=== PATIENT | female | born 1995 | race Caucasian/White ===

== ENCOUNTER 2017-06-14 01:02 | Emergency (ER) | payer BC ==
--- NOTE | 2017-06-14 01:21 | EDPHY ---
H & P Stated Complaint: ETOH, facial abrasions Time Seen by Provider: 06/14/17 01:10 HPI/ROS: Chief Complaint: Alcohol intoxication, vomiting HPI: 21-year-old female who was found on the street intoxicated. Patient noted to have a swollen right upper lip and facial contusions. Patient does not remember how she sustained these. She is unable to ambulate on their own. Patient brought in by EMS for further evaluation. Remainder of history is unobtainable secondary to the patient's intoxication. ROS: Unobtainable secondary to the patient's intoxication PMH: Unknown Medications: Unknown Allergies: Unknown Social History: Positive for alcohol Family History: non-contributory Physical Exam: Gen: Somnolent, responds to painful stimuli, maintaining airway, smells of alcohol and emesis HEENT: Patient has swollen right sided upper lower lips. There is a non through and through inner lower lip laceration. There is a small right upper lip abrasion with ecchymosis. There is right sided facial swelling. No zygoma tenderness. Nose: no epistaxis or deformity Eyes: PERRLA, EOMI Mouth: Moist mucosa no dental trauma, no maxillary or mandibular deformity or tenderness, full movement of her jaw. No temporomandibular joint tenderness Neck: Supple, no step-offs or deformity Chest: Atraumatic, lungs clear to auscultation Heart: S1, S2 normal, no murmur Abd: Soft, non-tender, no guarding Back: Atraumatic Ext: no edema, atraumatic Skin: no rash Neuro: Sensation grossly intact, Strength 5/5 in bilateral upper and lower extremities - Personal History Current Tetanus/Diphtheria Vaccine: Unsure Current Tetanus Diphtheria and Acellular Pertussis (TDAP): Unsure - Medical/Surgical History Hx Asthma: No Hx Chronic Respiratory Disease: No Hx Diabetes: No Hx Cardiac Disease: No Hx Renal Disease: No Hx Cirrhosis: No Hx Alcoholism: No Hx HIV/AIDS: No Hx Splenectomy or Spleen Trauma: No - Social History Smoking Status: Unknown if ever smoked Constitutional: Initial Vital Signs Temperature (C) 36.6 C 06/14/17 01:09 Heart Rate 101 H 06/14/17 01:09 Respiratory Rate 16 06/14/17 01:09 Blood Pressure 135/87 H 06/14/17 01:09 O2 Sat (%) 97 06/14/17 01:09 O2 Delivery Mode Room Air Allergies/Adverse Reactions: gluten Allergy (Verified 06/14/17 01:09) Home Medications: Medication Instructions Recorded Unobtainable 06/14/17 Medical Decision Making ED Course/Re-evaluation: Patient is now awake and appropriate. Ambulating unassisted to the bathroom. No current complaints. Patient is tolerating oral fluids. Patient is ready for discharge with sober ride. On reexamination patient has intact dentition. No significant bony tenderness. She is awake alert and answering questions appropriately. No indications for CT scanning at this time. Patient is not telling me that she remembers tripping and falling. Will discharge with a sober ride. Departure - Departure Disposition: Home, Routine, Self-Care Clinical Impression: Alcohol intoxication, Facial contusion Condition: Good Instructions: Alcohol Intoxication (ED), Facial Contusion (ED) Additional Instructions: Return to the emergency department for increasing headache, nausea, vomiting, mouth pain, or any other concerns. Referrals: Patient,NotPresent [Unknown] - As per Instructions
[2017-06-14 05:41] VITALS: BP 124/67
== END 2017-06-14 05:41 | disposition home or self-care (01) ==
DX: S00.83XA Contusion of other part of head, initial encounter (principal); F10.129 Alcohol abuse with intoxication, unspecified; X58.XXXA Exposure to other specified factors, initial encounter; Y92.410 Unspecified street and highway as the place of occurrence of the external cause